=== PATIENT | female | born 1980 | race American Indian/Alaskan Native ===

== ENCOUNTER 2020-02-27 11:49 | Outpatient (CLI) | payer OTHER ==
--- NOTE | 2020-02-27 13:52 | XRay Report ---
CERVICAL SPINE 3 VIEWS 12:30 INDICATION: BACK DISORDER COMPARISON: None available. FINDINGS: No soft tissue swelling is seen. Detail is mildly reduced on lateral views at C6 and C7. No obvious fractures are seen. No subluxation is noted. Disc spaces are maintained. LUMBAR SPINE 3 VIEWS 1226 INDICATION: BACK DISORDER COMPARISON: None available. FINDINGS: A trace of scoliosis is seen. No fractures or subluxations are noted. Disc spaces are maint ained. There probably are pars defects at L5. Signer Name: Christian Caro MD Signed: 02/27/2020 1:47 PM Workstation Name: [id number]
== END 2020-02-27 11:50 | disposition home or self-care (01) ==
LOC: XRAY 11:49
PROVIDERS: ATTEND Internal Medicine
DX: M41.86 Other forms of scoliosis, lumbar region (principal); F32.9 Major depressive disorder, single episode, unspecified; F41.9 Anxiety disorder, unspecified; F41.0 Panic disorder [episodic paroxysmal anxiety]
CPT/HCPCS: 72040; 72100

== ENCOUNTER 2020-02-27 12:32 | Emergency (ER) | payer SELFPAY ==
--- NOTE | 2020-02-27 14:14 | XRay Report ---
CHEST 1 VIEW INDICATION: cough. COMPARISON: None FINDINGS: Support devices: None. Heart: Within normal limits. Lungs/Pleura: No acute air space or interstitial disease. Additional findings: None. IMPRESSION: No acute findings. Signer Name: Ambrocio El Jr, MD Signed: 02/27/2020 2:09 PM Workstation Name: [id number]
--- NOTE | 2020-02-27 16:00 | Emergency Department Report ---
ED General Adult HPI - General Chief complaint: Upper Respiratory Infection Stated complaint: BODY PAIN/NO SMELL Time Seen by Provider: 02/27/20 15:35 Source: patient Mode of arrival: Ambulatory Limitations: No Limitations - History of Present Illness Initial comments: The patient was evaluated in the emergency department for symptoms described in the history of present illness. He/she was evaluated in the context of the global COVID-19 pandemic, which necessitated consideration that the patient might be at risk for infection with the virus that causes COVID-19. Institutional protocols and algorithms that pertain to the evaluation of patients at risk for COVID-19 are in a state of rapid change based on information released by regulatory bodies including the CDC and federal and state organizations. These policies and algorithms were followed during the patient's care in the emergency department. Please note that these policies, procedures and recommendations changed on a rapid basis. 39-year-old obese female presents to the emergency room complaining of right lower leg muscle cramps that starts in her buttocks and travels down her right leg, cough, sore throat and left shoulder pain. Patient denies any trauma to her left shoulder. She denies any trauma to her right leg. She is not taking anything for pain. She is currently on disability from [employer] for depression. She states that lying on her left shoulder makes the pain worse. Patient denies any headache. She reports only past medical history she has is depression. She reports she has no smell. Location: left, right, upper extremity, lower extremity Radiation: extremity (Right lower) Severity scale (0 -10): 6 Quality: burning, other (Cramping) Consistency: intermittent Improves with: rest Worsens with: other (Lying on her left shoulder) Associated Symptoms: cough. denies: fever/chills, headaches, loss of appetite, nausea/vomiting, shortness of breath - Related Data Previous Rx's Medication Instructions Recorded Last Taken Type Ibuprofen [Motrin 600 MG tab] 600 mg PO Q8H PRN #30 tablet 02/27/20 Unknown Rx Allergies Allergy/AdvReac Type Severity Reaction Status Date / Time No Known Allergies Allergy Unverified 02/27/20 11:50 ED Review of Systems ROS: Stated complaint: BODY PAIN/NO SMELL Other details as noted in HPI Comment: All other systems reviewed and negative ED Past Medical Hx - Past Medical History Previous Medical History?: Yes Hx Asthma: Yes - Surgical History Past Surgical History?: Yes Additional Surgical History: c-sections - Social History Smoking Status: Never Smoker Substance Use Type: None - Medications Home Medications: Home Medications Medication Instructions Recorded Confirmed Last Taken Type Ibuprofen [Motrin 600 MG tab] 600 mg PO Q8H PRN #30 tablet 02/27/20 Unknown Rx ED Physical Exam - General Limitations: No Limitations General appearance: alert, in no apparent distress, obese - Head Head exam: Present: atraumatic, normocephalic - Eye Eye exam: Present: normal appearance - ENT ENT exam: Present: mucous membranes moist - Neck Neck exam: Present: normal inspection - Respiratory Respiratory exam: Present: normal lung sounds bilaterally. Absent: respiratory distress - Cardiovascular Cardiovascular Exam: Present: regular rate, normal rhythm. Absent: systolic murmur, diastolic murmur, rubs, gallop - GI/Abdominal GI/Abdominal exam: Present: soft, normal bowel sounds - Extremities Exam Extremities exam: Present: normal inspection - Back Exam Back exam: Present: normal inspection - Neurological Exam Neurological exam: Present: alert, oriented X3 - Psychiatric Psychiatric exam: Present: normal affect, normal mood - Skin Skin exam: Present: warm, dry, intact, normal color. Absent: rash ED Course Vital Signs 02/27/20 12:38 Temperature 98.7 F Pulse Rate 98 H Respiratory 18 Rate Blood Pressure 151/110 Blood Pressure 155/102 [Left] O2 Sat by Pulse 98 Oximetry ED Medical Decision Making - Radiology Data Radiology results: report reviewed Patient: LISA CARY MR#: [id number] : 1980 Acct:[id number] Age/Sex: 39 / F ADM Date: 02/27/20 Loc: ED Attending Dr: Ordering Physician: SANTOS SARGENT Date of Service: 02/27/20 Procedure(s): XR chest 1V ap Accession Number(s): [id number] cc: SANTOS SARGENT Fluoro Time In Minutes: CHEST 1 VIEW INDICATION: cough. COMPARISON: None FINDINGS: Support devices: None. Heart: Within normal limits. Lungs/Pleura: No acute air space or interstitial disease. Additional findings: None. IMPRESSION: No acute findings. Signer Name: Ambrocio El Jr, MD Signed: 02/27/2020 2:09 PM Workstation Name: [id number] Transcribed By: TTR Dictated By: AMBROCIO EL JR, MD Electronically Authenticated By: AMBROCIO EL JR, MD Signed Date/Time: 02/27/201408 DD/ 08 TD/TT: - Medical Decision Making 39-year-old obese female presents to the emergency room complaining of right lower leg muscle cramps that starts in her buttocks and travels down her right leg, cough, sore throat and left shoulder pain. Patient denies any trauma to her left shoulder. She denies any trauma to her right leg. She is not taking anything for pain. She is currently on disability from [employer] for depression. She states that lying on her left shoulder makes the pain worse. Patient denies any headache. She reports only past medical history she has is depression. She reports she has no smell. Chest x-ray is negative for any acute abnormalities. Discussed with patient she can follow-up with her primary care provider. She can take ibuprofen or Tylenol for her muscular pain and cramping. She needs to increase her water intake by 2 to 3 L. Critical care attestation.: If time is entered above; I have spent that time in minutes in the direct care of this critically ill patient, excluding procedure time. ED Disposition Clinical Impression: Shoulder pain, left, Right lumbosacral radiculopathy, Obesity (BMI 30-39.9) Disposition: - TO HOME OR SELFCARE Is pt being admited?: No Does the pt Need Aspirin: No Condition: Stable Instructions: Shoulder Pain, Radicular Pain, Exercising to Lose Weight Additional Instructions: Please try taking pain medication to see if that improves your pain. Follow-up with your primary care provider. Prescriptions: Ibuprofen [Motrin 600 MG tab] 600 mg PO Q8H PRN #30 tablet PRN Reason: Pain Referrals: PRIMARY CARE, [Primary Care Provider] - 3-5 Days
[2020-02-27 16:10] VITALS: BP 148/98
== END 2020-02-27 16:36 | disposition home or self-care (01) ==
LOC: ED 12:32
DX: M25.512 Pain in left shoulder (principal); M54.17 Radiculopathy, lumbosacral region; E66.8 Other obesity; J45.909 Unspecified asthma, uncomplicated; Z98.890 Other specified postprocedural states
CPT/HCPCS: 71045; 99283